=== PATIENT | male | born 1945 | race Caucasian/White ===

== ENCOUNTER → 2019-12-21 | Outpatient (CLI) | payer MEDICARE ==
[2019-12-21 16:46] LABS: Chol/HDL Ratio 2.41; LDL Cholesterol,Calculated 89.6 mg/dL (0.0-131.0); VLDL Calculation 21.4 mg/dL (5.00-40.00)
[2019-12-21 16:47] LABS: African American GFR (CKD) 69.1 (60.0-200.0); Albumin 4.4 g/dL (3.80-4.90); Albumin/Globulin Ratio 1.83 (1.60-3.17); Anion Gap 1.4 mmol/L (4.00-12.00); BUN/Creat Ratio 17.5 Ratio (12.00-20.00); Calcium 9.4 mg/dL (8.7-10.3); Carbon Dioxide 33.6 mmol/L (21.6-31.8); Globulin 2.4 g/dL (1.6-3.3); Non-African American GFR(CKD) 59.6 (60.0-200.0); Potassium 5.8 mmol/L (3.5-5.5); Total Bilirubin 0.6 mg/dL (0.2-1.2); Total Protein 6.8 g/dL (6.2-8.2)
== END | disposition home or self-care (01) ==
LOC: LABWHC1 08:01
PROVIDERS: ATTEND Internal Medicine Interventional Cardiology
DX: E78.2 Mixed hyperlipidemia (principal)
CPT/HCPCS: 36415; 80053; 80061

== ENCOUNTER → 2020-01-15 | Outpatient (CLI) | payer MEDICARE ==
[2020-01-15 16:54] LABS: African American GFR (CKD) 76.8 (60.0-200.0); Anion Gap 6.2 mmol/L (4.00-12.00); BUN/Creat Ratio 14.55 Ratio (12.00-20.00); Calcium 9.6 mg/dL (8.7-10.3); Carbon Dioxide 28.8 mmol/L (21.6-31.8); Non-African American GFR(CKD) 66.2 (60.0-200.0); Potassium 4.6 mmol/L (3.5-5.5)
== END | disposition home or self-care (01) ==
LOC: LABWHC1 10:26
PROVIDERS: ATTEND Nurse Practitioner Adult Health
DX: N18.9 Chronic kidney disease, unspecified (principal)
CPT/HCPCS: 36415; 80048

== ENCOUNTER → 2020-07-01 | Outpatient (CLI) | payer MEDICARE ==
[2020-07-01 15:33] LABS: African American GFR (CKD) 76.2 (60.0-200.0); Albumin 4.5 g/dL (3.80-4.90); Albumin/Globulin Ratio 2.05 (1.60-3.17); Anion Gap 6.4 mmol/L (4.00-12.00); BUN/Creat Ratio 13.64 Ratio (12.00-20.00); Calcium 9.1 mg/dL (8.7-10.3); Carbon Dioxide 30.6 mmol/L (21.6-31.8); Chol/HDL Ratio 2.76; Globulin 2.2 g/dL (1.6-3.3); LDL Cholesterol,Calculated 114.4 mg/dL (0.0-131.0); Non-African American GFR(CKD) 65.8 (60.0-200.0); Potassium 4.6 mmol/L (3.5-5.5); Total Bilirubin 0.6 mg/dL (0.3-1.2); Total Protein 6.7 g/dL (6.2-8.2); VLDL Calculation 17.6 mg/dL (5.00-40.00)
== END | disposition home or self-care (01) ==
LOC: LABWHC1 08:45
PROVIDERS: ATTEND Internal Medicine Interventional Cardiology
DX: E78.2 Mixed hyperlipidemia (principal)
CPT/HCPCS: 36415; 80053; 80061

== ENCOUNTER → 2020-07-22 | Outpatient (CLI) | payer MEDICARE ==
--- NOTE | 2020-07-23 02:20 | CT ---
EXAMINATION TYPE: CT chest w con DATE OF EXAM: 07/22/2020 COMPARISON: 09/06/2014 HISTORY: f/u nodules CT DLP: 317.9 mGycm Automated exposure control for dose reduction was used. CONTRAST: Performed with IV Contrast, patient injected with 100 mL of Isovue 300. Images obtained from the thoracic inlet to the diaphragm with IV contrast. There is minimal reticular density at the lung apices. There is no evidence of a pulmonary mass. Ther e is no pleural effusion. Heart size is normal. There is no pericardial effusion. There are no hilar masses. There is no mediastinal adenopathy. Thoracic aorta is atheromatous. Upper abdominal soft tissues are intact. Ascending aorta measures 3.6 cm. There is no aortic aneurysm or di ssection. There is hypertrophic degenerative spur formation in the thoracic spine. There is no compression frac ture. Sternum is intact. The ribs appear intact. I see no filling defect in the pulmonary arteries. T here is some coronary artery calcification. The upper abdominal soft tissues are intact. IMPRESSION: Negative CT scan of the chest. No suspicious pulmonary mass. Minimal scarring at the lung apices is s table compared to old exam.
== END | disposition home or self-care (01) ==
LOC: RADCTMAIN 15:40
PROVIDERS: ATTEND Internal Medicine
DX: J98.4 Other disorders of lung (principal)
CPT/HCPCS: 82565; 84520; 71260; 36415; Q9967

== ENCOUNTER → 2021-01-29 | Outpatient (CLI) | payer MEDICARE ==
[2021-01-29 22:29] LABS: African American GFR (CKD) 76.2 (60.0-200.0); Albumin 4.3 g/dL (3.80-4.90); Albumin/Globulin Ratio 1.59 (1.60-3.17); Anion Gap 9.1 mmol/L (4.00-12.00); BUN/Creat Ratio 19.09 Ratio (12.00-20.00); Calcium 9.6 mg/dL (8.7-10.3); Carbon Dioxide 25.9 mmol/L (21.6-31.8); Chol/HDL Ratio 2.52; Globulin 2.7 g/dL (1.6-3.3); LDL Cholesterol,Calculated 86.2 mg/dL (0.0-131.0); Non-African American GFR(CKD) 65.8 (60.0-200.0); Potassium 4.9 mmol/L (3.5-5.5); Total Bilirubin 0.8 mg/dL (0.2-1.2); VLDL Calculation 18.8 mg/dL (5.00-40.00)
== END | disposition home or self-care (01) ==
LOC: LABWHC1 07:32
PROVIDERS: ATTEND Internal Medicine Interventional Cardiology
DX: E78.2 Mixed hyperlipidemia (principal)
CPT/HCPCS: 36415; 80053; 80061

== ENCOUNTER → 2021-07-30 | Outpatient (CLI) | payer MEDICARE ==
[2021-07-30 15:21] LABS: ALT 40 U/L (10-49); AST 32 U/L (14-35); Chol/HDL Ratio 2.69 Ratio; LDL Cholesterol,Calculated 95.5 mg/dL (0.0-131.0)
== END | disposition home or self-care (01) ==
LOC: LABWHC1 08:35
PROVIDERS: ATTEND Internal Medicine Interventional Cardiology
DX: E78.2 Mixed hyperlipidemia (principal)
CPT/HCPCS: 36415; 80061; 84450; 84460

== ENCOUNTER 2021-08-05 09:19 | Day surgery (SDC) | payer MEDICARE ==
[2021-07-31 15:49] VITALS: BMI 26.1
[~2021-08-05 09:19] MED LIST: LACTATED RINGERS 1,000 ML IV SCH; LIDOCAINE 1% (10MG/ML) FOR IV START INTRADERMA PRN
[2021-08-05 10:12] VITALS: TEMP 96.8
[2021-08-05] MEDS ORDERED: LIDOCAINE 1% INJ 10MG/ML (20 ML MDV) ONE (10:41)
[2021-08-05] MEDS ORDERED: PROPOFOL 10 MG/ML 20 ML VIAL IV ONE (10:41)
--- NOTE | 2021-08-05 10:45 | P.GSHP ---
History of Present Illness H&P Date: 08/05/21 Chief Complaint: Colon cancer screening 76-year-old male here today for colonoscopy. No significant bowel complaints. Denies rectal bleeding or melena. No family history of colon cancer. Patient states he has not had polyps. Past Medical History Past Medical History: GERD/Reflux, Hyperlipidemia, Hypertension History of Any Multi-Drug Resistant Organisms: None Reported Past Surgical History: Heart Catheterization With Stent, Orthopedic Surgery Additional Past Surgical History / Comment(s): heart stents x2,rt knee arthroscopy Past Anesthesia/Blood Transfusion Reactions: No Reported Reaction Date of Last Stent Placement:: 2011 Smoking Status: Never smoker - Past Family History Mother Family Medical History: No Reported History Medications and Allergies Home Medications Medication Instructions Recorded Confirmed Type Aspirin 81 mg PO DAILY 07/31/21 07/31/21 History Atorvastatin [Lipitor] 40 mg PO HS 07/31/21 07/31/21 History Cholecalciferol [Vitamin D3 (25 25 mcg PO DAILY 07/31/21 07/31/21 History Mcg = 1000 Iu)] Ezetimibe [Zetia] 10 mg PO HS 07/31/21 07/31/21 History Lisinopril [Prinivil] 10 mg PO BID 07/31/21 08/05/21 History Omeprazole 20 mg PO Q2D 07/31/21 07/31/21 History atenoloL 25 mg PO QAM 07/31/21 07/31/21 History Allergies Allergy/AdvReac Type Severity Reaction Status Date / Time No Known Allergies Allergy Verified 08/05/21 09:45 Surgical - Exam Vital Signs Temp Pulse Resp BP Pulse Ox 96.8 F L 49 L 20 143/66 100 08/05/21 10:10 08/05/21 10:10 08/05/21 10:10 08/05/21 10:10 08/05/21 10:10 Physical exam: General: Well-developed, well-nourished HEENT: Normocephalic, sclerae nonicteric Abdomen: Nontender, nondistended Extremities: No edema Neuro: Alert and oriented Assessment and Plan (1) Colon cancer screening Narrative/Plan: Will proceed with colonoscopy at this time Current Visit: Yes Status: Acute Code(s): Z12.11 - ENCOUNTER FOR SCREENING FOR MALIGNANT NEOPLASM OF COLON SNOMED Code(s): 578272379
--- NOTE | 2021-08-05 11:02 | P.PCN ---
Date of Procedure: 08/05/21 Procedure(s) Performed: PREOPERATIVE DIAGNOSIS: Colon cancer screening POSTOPERATIVE DIAGNOSIS: Normal exam PROCEDURE: Colonoscopy ANESTHESIA: MAC SURGEON: Christopher Dominguez M.D. SPECIMENS: None ENDOSCOPIC PROCEDURE: The patient was placed on the endoscopy table in the left decubitus position. The Olympus colonoscope was inserted into the anus and passed under direct visualization to the base of the cecum. The appendiceal orifice was visualized. From that point the scope was slowly withdrawn inspecti ng all surfaces carefully. There were no neoplastic inflammatory or polypoid lesions throughout the cecum, ascending, transverse, descending, sigmoid and rectum. There was no visible diverticulosis noted. Digital rectal examination was normal. The patient was taken to the recovery room in stable condition per anesthesia guidelines. RECOMMENDATIONS: Resume diet. Follow-up colonoscopy 10 years.
[2021-08-05 11:22] VITALS: BP 99/60; PULSE 53; RESP 16
== END 2021-08-05 12:04 | disposition home or self-care (01) ==
LOC: ORWHC2ENDO 09:19
PROVIDERS: ATTEND Surgery
DX: Z12.11 Encounter for screening for malignant neoplasm of colon (principal); K21.9 Gastro-esophageal reflux disease without esophagitis; I25.10 Atherosclerotic heart disease of native coronary artery without angina pectoris; E78.5 Hyperlipidemia, unspecified; I10 Essential (primary) hypertension; Z97.2 Presence of dental prosthetic device (complete) (partial); Z95.5 Presence of coronary angioplasty implant and graft; Z98.890 Other specified postprocedural states; Z79.82 Long term (current) use of aspirin; Z79.899 Other long term (current) drug therapy
CPT/HCPCS: J2001; J2704; G0121; 45378

== ENCOUNTER → 2022-01-12 | Outpatient (CLI) | payer MEDICARE ==
[2022-01-12 11:18] LABS: ALT 34 U/L (10-49); AST 28 U/L (14-35); African American GFR (CKD) 83.9 (60.0-200.0); Albumin 4.4 g/dL (3.8-4.9); Albumin/Globulin Ratio 1.92 (1.60-3.17); Alkaline Phosphatase 58 U/L (41-126); BUN/Creat Ratio 15.05 Ratio (12.00-20.00); Blood Urea Nitrogen 15.2 mg/dL (9.0-27.0); Calcium 9.2 mg/dL (8.7-10.3); Chloride 98 mmol/L (96-109); Chol/HDL Ratio 2.22 Ratio; Globulin 2.3 g/dL (1.6-3.3); Glucose 116 mg/dL (70-110); LDL Cholesterol,Calculated 78.2 mg/dL (0.0-131.0); Non-African American GFR(CKD) 72.4 (60.0-200.0); Potassium 4.3 mmol/L (3.5-5.5); Sodium 135 mmol/L (135-145); Total Protein 6.6 g/dL (6.2-8.2)
== END | disposition home or self-care (01) ==
LOC: LABWHC1 07:41
PROVIDERS: ATTEND Internal Medicine Interventional Cardiology
DX: E78.2 Mixed hyperlipidemia (principal)
CPT/HCPCS: 36415; 80053; 80061